=== PATIENT | female | born 1950 | race Caucasian/White ===

== ENCOUNTER → 2016-09-03 | Outpatient (CLI) | payer OTHER, MEDICARE | LOC: FIMAGING 10:08 | PROVIDERS: ATTEND Radiology Diagnostic Radiology | DX: Z13.820 Encounter for screening for osteoporosis (principal); M85.80 Other specified disorders of bone density and structure, unspecified site ==

== ENCOUNTER → 2017-05-27 | Outpatient (CLI) | payer OTHER, MEDICARE | LOC: FIMAGING 09:51 | DX: Z12.31 Encounter for screening mammogram for malignant neoplasm of breast (principal) | CPT/HCPCS: G0202 ==

== ENCOUNTER 2017-11-22 18:56 | Emergency (ER) | payer OTHER, MEDICARE ==
--- NOTE | 2017-11-22 19:28 | EDPHY ---
H & P Time Seen by Provider: 11/22/17 19:17 HPI/ROS: CHIEF COMPLAINT: Left knee pain HISTORY OF PRESENT ILLNESS: Patient is a 67-year-old female who presents to the emergency department with her left knee "locking up."This occurs intermittently and she is currently able to straighten her leg. She bends her knee and then is unable to straighten it. If she flexes it further than streaking said often has normal range of motion. She states that has gotten worse over the past few days. She has been told by an orthopedic surgeon that she is a candidate for knee replacement. She has no recent fall or injury. It does cause her pain when her knee locks up. REVIEW OF SYSTEMS: My complete review of systems is negative except as mentioned in the HPI. Past Medical/Surgical History: Includes degenerative joint disease, depression Past surgical history: Thyroidectomy Smoking Status: Never smoked Physical Exam: Vitals noted General Appearance: Alert and no distress. Head: Pupils equal. Normal. Respiratory: No respiratory distress. Cardiac: regular rate and rhythm. Extremities: Patient's left knee appears normal. No swelling. No patellar tenderness. Full range of motion. No palpable click. Ligaments are stable. Neurovascular intact distally. Skin: No rashes or lesions. Neuro: Alert. Normal mood and affect. Constitutional: Initial Vital Signs Temperature (C) 37.2 C 11/22/17 19:07 Heart Rate 85 11/22/17 19:07 Respiratory Rate 16 11/22/17 19:07 Blood Pressure 143/86 H 11/22/17 19:07 O2 Sat (%) 92 11/22/17 19:07 O2 Delivery Mode Room Air Allergies/Adverse Reactions: Penicillins Allergy (Unknown, Verified 05/07/13 17:18) Home Medications: Medication Instructions Recorded FLUoxetine [Prozac] 20 mg PO DAILY 03/08/13 Lovastatin 20 mg PO 03/08/13 buPROPion SR [Wellbutrin 100mg SR 100 mg PO BID 03/08/13 (RX)] Montelukast Sodium 11/22/17 Medical Decision Making - Diagnostics Imaging Results: Imaging Impressions Knee X-Ray 11/22/17 19:23 Impression: Left knee osteoarthritis, predominant involvement of the lateral compartment. ED Course/Re-evaluation: In the emergency department x-ray was performed. Left knee x-ray: Please refer the dictated report. No acute disease noted. Knee osteoarthritis. Discussed the results with the patient. I answered all her questions. She is given a knee immobilizer and crutches for comfort. She will follow up with Dr. Henry. She is given his contact information. She is given warnings prior to leaving. She will return with worsening symptoms. While I was given the patient instructions she stated she had a sore throat. 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 Her pharynx exam showed minimal erythema. Uvula is midline. There are no lesions or discharge. No asymmetry. No LAD. Neck supple. Strep screen was sent. Rapid strep screen: Negative I discussed the results with the patient. I again answered all her questions. She is given warnings prior to leaving. Differential Diagnosis: My differential includes but is not limited to meniscal tear, ligamentous injury , dislocation, fracture Departure - Departure Disposition: Home, Routine, Self-Care Clinical Impression: Left knee pain Qualifiers: Chronicity: acute Qualified Code(s): M25.562 - Pain in left knee Pharyngitis Qualifiers: Pharyngitis/tonsillitis etiology: unspecified etiology Qualified Code(s): J02.9 - Acute pharyngitis, unspecified Condition: Good Instructions: Knee Pain (ED), Pharyngitis (ED) Additional Instructions: Use your knee immobilizer and crutches for comfort. You need close follow-up with Orthopedics. Call to make an appointment. Referrals: [facility] [Other] - As per Instructions Khang Henry MD [Medical Doctor] - 5-7 days, call for appt.
[2017-11-22 20:34] VITALS: BP 141/56
== END 2017-11-22 20:34 | disposition home or self-care (01) ==
DX: M25.562 Pain in left knee (principal); J02.9 Acute pharyngitis, unspecified
CPT/HCPCS: 73564; 99284; L1830

== ENCOUNTER → 2018-10-12 | Outpatient (CLI) | payer OTHER | LOC: FIMAGING 09:50 | PROVIDERS: ATTEND Nurse Practitioner Family | DX: M81.0 Age-related osteoporosis without current pathological fracture (principal); E04.2 Nontoxic multinodular goiter ==

== ENCOUNTER → 2018-11-08 | Outpatient (CLI) | payer OTHER ==
[~2018-11-08] MED LIST: LIDOCAINE 1% 300 MG/30 ML SDV ONE
== END ==
LOC: FIMAGING 12:25
PROVIDERS: ATTEND Nurse Practitioner Family
DX: E04.2 Nontoxic multinodular goiter (principal)